=== PATIENT | female | born 1960 | race Asian ===

== ENCOUNTER 2018-03-29 08:14 | Day surgery (SDC) | END 2018-03-29 14:18 | disposition home or self-care (01) ==

== ENCOUNTER 2018-12-11 09:31 | Day surgery (SDC) | payer OTHER ==
[~2018-12-11] VITALS: Ht 162.6 cm; Wt 61.1 kg
[~2018-12-11 09:31] MED LIST: ERGO500013 PO; OLAP150T PO
[2018-12-11 10:11] VITALS: BP 120/75; PULSE 65; RESP 18; Ht 162.6 cm; Wt 61.1 kg
[2018-12-11] MEDS ORDERED: POLYMYXIN/BACITRACIN 1L IRRIG ONE (11:29)
[2018-12-11] MEDS ORDERED: LIDOCAINE 1%/EPI (1:100,000) (MDV) 20 ML ONE (12:01)
[2018-12-11] MEDS ORDERED: SOD CHLORIDE 0.9% 500 ML ONE (12:13)
[2018-12-11] MEDS ORDERED: FENTAnyl 50 MCG/ML VIAL ONE (12:13)
[2018-12-11] MEDS ORDERED: MIDAZOLAM 1 MG/ML 2 ML INJ ONE (12:13)
[2018-12-11 13:50] VITALS: BP 103/57; PULSE 87; RESP 18
== END 2018-12-11 14:39 | disposition home or self-care (01) ==
LOC: SDS 09:31 → CCL 09:31
PROVIDERS: ATTEND Internal Medicine Hematology & Oncology
DX: Z45.2 Encounter for adjustment and management of vascular access device (principal); Z85.43 Personal history of malignant neoplasm of ovary
CPT/HCPCS: 36590; J2250; J3010; J7040; Z7610